=== PATIENT | female | born 1950 ===

== ENCOUNTER 2022-01-08 05:23 | Day surgery (SDC) | payer MEDICARE ==
[2022-01-08] VITALS (10 sets, daily range): BP systolic 74–108; BP diastolic 45–57; PULSE 61–68; TEMP 97.6–98.2
[~2022-01-08] VITALS: Ht 157.5 cm; Wt 71.5 kg
--- NOTE | 2022-01-08 06:10 | NUR ---
Patient refusing IV start in hand, wrist or forearm at this time.
--- NOTE | 2022-01-08 06:11 | NUR ---
Patient's blood sugar 255. Notified MARIO Davis of results. Will defer to anesthesia for treatment. Attempted to contact ANDREW Doshi and unable to reach at this time.
[2022-01-08] MEDS ORDERED: CYMBALTA 60MG60 MG PO (06:15)
[2022-01-08] MEDS ORDERED: RITALIN10 MG PO (06:16)
[2022-01-08] MEDS ORDERED: GLUCOPHAGE1000 MG PO (06:16)
[2022-01-08] MEDS ORDERED: WELLBUTRIN XL150 MG PO (06:17)
[2022-01-08] MEDS ORDERED: CELEBREX 200MG200 MG PO (06:17)
[2022-01-08] MEDS ORDERED: MULTI VITAMINS1 TAB PO (06:18)
[2022-01-08] MEDS ORDERED: KLONOPIN 0.5MG0.5 MG PO (06:18)
[2022-01-08] MEDS ORDERED: ULTRAM 50MG TAB50 MG PO (06:18)
[2022-01-08] MEDS ORDERED: VITAMINC1000TA PO (06:19)
[2022-01-08] MEDS ORDERED: OYSTER SHELL CA1 TA6 PO (06:19)
[2022-01-08] MEDS ORDERED: VITAMIND3 5000 PO (06:20)
[2022-01-08] MEDS ORDERED: PHARMASSURE CHE30 MG PO (06:23)
--- NOTE | 2022-01-08 08:42 | NUR ---
0735: Patient arrived back into [facility], unarousable to vocal or phyical stimulation. Report recieved from ANDREW Doshi and CANDY Pollock. Instructed to let patient rest and sleep off medication. 0805: awakens to name doesn't mantain eye contact. Blood sugar check and blood pressure result communicated to ANDREW Doshi. 0725: Notified Tico MORALES patient remains drowsy but arousable to phyical stimulation and name. Answers questions appropriately at this time.
--- NOTE | 2022-01-08 13:07 | NUR ---
0900: Patient able to maintan eye contact >10seconds. Requesting pudding and water at this time. Denies pain or nausea. CMS intact patient states RUE is numb. 0945: Patient awakens to vocal stimulation. Blood pressure results and progress relayed to ANDREW Doshi. Patient tolerated food and drink well. Denies pain or nausea. 1030: Patient up to restroom. Ambulated with stand by assisted. Voided successfully. 1035: Back in room getting dressed with assistance from friend. 1040: Contacted ANDREW Doshi for okay to discharge with current blood pressure. Patient okay for discharge. IV removed without complications. Went through discharge instructions with patient and friend. Escorted to patient entrance via wheelchair. Patient got into personal vehicle unassisted and left in the care of her friend, Meghna.
== END 2022-01-08 10:50 | disposition home or self-care (01) ==
LOC: SDCO 05:23
DX: D17.21 Benign lipomatous neoplasm of skin and subcutaneous tissue of right arm (principal); E11.9 Type 2 diabetes mellitus without complications; Z28.310 Unvaccinated for COVID-19; Z28.9 Immunization not carried out for unspecified reason; Z79.84 Long term (current) use of oral hypoglycemic drugs
CPT/HCPCS: J1815; J1885; J2250; J2405; J2704; J3010; J7120

== ENCOUNTER → 2022-01-24 | Outpatient (CLI) | payer MEDICARE ==
[~2022-01-24] MED LIST: CELEBREX 200MG200 MG PO; CYMBALTA 60MG60 MG PO; GLUCOPHAGE1000 MG PO; KLONOPIN 0.5MG0.5 MG PO; MULTI VITAMINS1 TAB PO; OYSTER SHELL CA1 TA6 PO; PHARMASSURE CHE30 MG PO; RITALIN10 MG PO; ULTRAM 50MG TAB50 MG PO; VITAMINC1000TA PO; VITAMIND3 5000 PO; WELLBUTRIN XL150 MG PO
== END ==
LOC: MC.RAD 08:30
DX: Z12.31 Encounter for screening mammogram for malignant neoplasm of breast (principal)

== ENCOUNTER 2022-02-19 15:15 | Outpatient (RCR) | payer OTHER | END 2022-02-21 | disposition home or self-care (01) | LOC: WSST | DX: R41.3 Other amnesia (principal); U09.9 Post COVID-19 condition, unspecified ==

== ENCOUNTER 2022-03-20 16:00 | Outpatient (RCR) | payer MEDICARE, OTHER | END 2022-03-24 | LOC: WSST | DX: U09.9 Post COVID-19 condition, unspecified (principal); R41.3 Other amnesia ==

== ENCOUNTER 2022-04-03 07:57 | Outpatient (RCR) | payer OTHER | END 2022-04-24 | disposition home or self-care (01) | LOC: WSST | DX: U09.9 Post COVID-19 condition, unspecified (principal); R41.3 Other amnesia ==